=== PATIENT | male | born 1940 ===

== ENCOUNTER 2024-08-15 21:50 | Outpatient (REF) | payer MEDICARE, SELFPAY ==
[2024-08-15 15:14] LABS: HCT 39.2 % (40.0-50.0); HGB 12.3 g/dL (13.5-17.5); MCH 29.6 pg (27.0-33.0); MCHC 31.4 % (32.0-36.0); MCV 94 fL (80-95); MPV 10.9 fL (8.0-11.0); Platelet Count 267 10^3/uL (130-400); RBC 4.16 10^6/uL (4.36-5.78); RDW 13.4 % (11.8-14.1); RDW-SD 46.8 fL; WBC 9.68 10^3/uL (4.4-10.8)
[2024-08-15 15:35] LABS: Anion Gap 9.3 mmol/L (3-11); BUN 23 mg/dL (7-18); CO2 28.7 mmol/L (21.0-32.0); CREATININE 1.1 mg/dL (0.70-1.30); Calcium 8.8 mg/dL (8.5-10.1); Chloride 106 mmol/L (98-107); Estimated GFR 66.19 (mL/min/1.73m2); Glucose 160 mg/dL (74-106); Potassium 4.2 mmol/L (3.5-5.1); Sodium 144 mmol/L (136-145)
== END 2024-08-15 21:51 | disposition home or self-care (01) ==
LOC: LBN 21:50
PROVIDERS: Visit Provider Family Medicine
DX: I10 Essential (primary) hypertension (principal); M62.81 Muscle weakness (generalized)
CPT/HCPCS: 80048; 85027

== ENCOUNTER 2024-10-04 00:26 | Outpatient (CLI) | payer MEDICARE, MEDICAID, SELFPAY ==
--- NOTE | 2024-10-04 11:17 | DI.RAD_ITS ---
Exam(s) XR CHEST 2V PA LATERAL EXAM: XR CHEST 2V PA LATERAL CLINICAL HISTORY: HYPOXEMIA,SOB,R09.02. TECHNIQUE: 2D digital imaging was performed. COMPARISON: No exams were available for comparison FINDINGS: 2 portable views-AP and lateral: Mild cardiomegaly. Mediastinum not widened No infiltrate seen on frontal view. There increased markings lower lobe seen on lateral view. No ob vious pleural effusions. No pulmonary edema. IMPRESSION: Possible subtle bilateral lower lobe infiltrates as seen on the lateral view. No obvious pleural eff usions. DATA REPOSITORY: RADIATION DOSE DELIVERED:
== END 2024-10-04 00:46 ==
PROVIDERS: Visit Provider Nurse Practitioner Family
DX: R09.02 Hypoxemia (principal); R91.8 Other nonspecific abnormal finding of lung field
CPT/HCPCS: 71046

== ENCOUNTER 2024-12-17 00:43 | Outpatient (CLI) | payer MEDICARE, MEDICAID, SELFPAY ==
--- NOTE | 2024-12-17 15:17 | DI.RAD_ITS ---
Exam(s) XR SHOULDER RT COMPLETE 2+V EXAM: XR SHOULDER RT COMPLETE 2+V CLINICAL HISTORY: Pain in shoulder for 14 days, M25.51. TECHNIQUE: 2D digital imaging was performed of the right shoulder. Five images were obtained. AP, Grashey, Y-view and axillary views were obtained. COMPARISON: No exams were available for comparison FINDINGS: BONES: No acute fracture is present. No bony destructive lesion is seen. JOINTS: No dislocation present. Moderate degenerative changes are seen at the acromioclavicular joint . There are mild degenerative changes seen the glenohumeral joint. SOFT TISSUE: Normal. 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 DATA REPOSITORY: RADIATION DOSE DELIVERED:
== END 2024-12-17 01:03 ==
LOC: DI 00:43
PROVIDERS: Visit Provider Nurse Practitioner Family
DX: M19.011 Primary osteoarthritis, right shoulder (principal)
CPT/HCPCS: 73030

== ENCOUNTER 2025-03-18 16:03 | Outpatient (REF) | payer MEDICARE, MEDICAID, SELFPAY ==
[2025-03-18 14:35] LABS: Abs Immature Grans 0.03 10^3/uL (0.0-0.06); Absolute Basophil Count 0.06 10^3/uL (0.0-0.2); Absolute Eosinophil Count 0.55 10^3/uL (0.0-0.7); Absolute Lymphocyte Count 1.08 10^3/uL (1.2-3.4); Absolute Monocyte Count 0.66 10^3/uL (0.1-0.8); Absolute Neutrophil Count 5.67 10^3/uL (1.2-6.7); Basophils % 0.7 %; Eosinophils % 6.8 %; HCT 38.5 % (40.0-50.0); HGB 12.7 g/dL (13.5-17.5); Immature Grans % 0.4 %; Lymphocytes % 13.4 %; MCH 29.6 pg (27.0-33.0); MCV 90 fL (80-95); MPV 10.3 fL (8.0-11.0); Monocytes % 8.2 %; Neutrophils % 70.5 %; Platelet Count 258 10^3/uL (130-400); RBC 4.29 10^6/uL (4.36-5.78); RDW 14.7 % (11.8-14.1); RDW-SD 48.8 fL; WBC 8.05 10^3/uL (4.4-10.8)
[2025-03-18 22:13] LABS: Anion Gap 9.5 mmol/L (3-11); BUN 15 mg/dL (7-18); CO2 27.5 mmol/L (21.0-32.0); Calcium 8.3 mg/dL (8.5-10.1); Chloride 102 mmol/L (98-107); Estimated GFR 73.76 (mL/min/1.73m2); Glucose 134 mg/dL (74-106); Potassium 4.6 mmol/L (3.5-5.1); Sodium 139 mmol/L (136-145)
== END 2025-03-18 16:04 | disposition home or self-care (01) ==
LOC: LBN 16:03
PROVIDERS: Visit Provider Family Medicine
DX: N18.30 Chronic kidney disease, stage 3 unspecified (principal)
CPT/HCPCS: 80048; 85025

== ENCOUNTER 2025-08-14 13:43 | Outpatient (REF) | payer MEDICARE, MEDICAID, SELFPAY ==
[2025-08-14 17:07] LABS: Glucose Negative (Negative)
[2025-08-14 17:19] LABS: RBC Negative HPF (0-2); WBC Negative HPF (0-5)
== END 2025-08-14 13:44 | disposition home or self-care (01) ==
LOC: LBN 13:43
PROVIDERS: Visit Provider Nurse Practitioner Adult Health
DX: N39.9 Disorder of urinary system, unspecified (principal)
CPT/HCPCS: 81003; 81015; 87086

== ENCOUNTER 2025-09-22 11:37 | Outpatient (REF) | payer MEDICARE, MEDICAID, SELFPAY ==
[2025-09-22 14:22] LABS: Abs Immature Grans 0.15 10^3/uL (0.0-0.06); HCT 37.2 % (40.0-50.0); HGB 12.0 g/dL (13.5-17.5); Immature Grans % 1.5 %; MCH 28.8 pg (27.0-33.0); MCHC 32.3 % (32.0-36.0); MCV 89 fL (80-95); MPV 9.9 fL (8.0-11.0); Platelet Count 273 10^3/uL (130-400); RBC 4.16 10^6/uL (4.36-5.78); RDW 14.6 % (11.8-14.1); RDW-SD 47.7 fL; WBC 9.70 10^3/uL (4.4-10.8)
[2025-09-22 14:39] LABS: Hemoglobin A1C 5.7 % (<5.7)
[2025-09-22 14:41] LABS: Magnesium 1.8 mg/dL (1.6-2.6)
[2025-09-22 15:04] LABS: ALT 7 U/L (10-49); AST 9 U/L (<34); Albumin 3.2 g/dL (3.2-5.0); Alkaline Phosphatase 105 U/L (46-116); Anion Gap 8.5 mmol/L (3-11); BUN 16 mg/dL (9-23); Bilirubin, Total 0.4 mg/dL (0.2-1.2); CO2 27.5 mmol/L (20.0-31.0); Calcium 8.4 mg/dL (8.3-10.6); Chloride 104 mmol/L (98-107); Cholesterol 113 mg/dL (<200); Glucose 150 mg/dL (74-106); HDL Cholesterol 43 mg/dL (>or=40); Potassium 4.3 mmol/L (3.5-5.1); Sodium 140 mmol/L (136-145); Total Protein 6.1 g/dL (5.7-8.2)
== END 2025-09-22 11:38 | disposition home or self-care (01) ==
LOC: LBN 11:37
PROVIDERS: Visit Provider Nurse Practitioner Adult Health
DX: N18.30 Chronic kidney disease, stage 3 unspecified (principal); E11.9 Type 2 diabetes mellitus without complications
CPT/HCPCS: 80053; 80061; 83036; 83735; 85025